=== PATIENT | female | born 1970 | race Caucasian/White ===

== ENCOUNTER 2024-03-22 10:05 | Emergency (ER) | payer OTHER, SELFPAY ==
[2024-03-22 10:52] LABS: #Basophils 0.07 10x3/uL (0.0-0.2); %Basophils 1.4 % (0.0-1.0); %Eosinophils 5.8 % (0.0-10.0); %Lymphocytes 47.7 % (21.0-51.0); %Monocytes 7.4 % (0.0-10.0); %Neutrophils 36.7 % (42.0-75.0); Hematocrit 30.1 % (36.0-47.0); Mean Corpuscular HGB CONC 33.2 g/dL (32.0-36.0); Mean Corpuscular Hemoglobin 36.5 pg (27.0-31.0); Mean Corpuscular Volume 109.9 fL (78.0-98.0); Mean Platelet Volume 8.7 fL (7.4-10.4); Platelet Count 343 10x3/uL (130-400); Red Blood Cell (RBC) Count 2.74 mill/uL (4.20-5.40)
[2024-03-22 11:05] LABS: INR-International Normal Ratio 1.1; PTT 27.2 sec (22.9-36.1); Prothrombin Time 13.8 sec (12.0-14.7)
[2024-03-22 11:09] LABS: ALT (SGPT) 26 U/L (8-55); AST (SGOT) 35 U/L (5-34); Albumin 3.3 g/dL (3.5-5.0); Alkaline Phosphatase 94 U/L (40-110); Anion Gap 13 mmol/L (10-20); BUN (Urea Nitrogen) 8 mg/dL (9.8-20.1); Bilirubin, Total 0.1 mg/dL (0.2-1.2); Calc. Creatinine Clearance 0 mL/min (70-130); Calcium 8.3 mg/dL (7.8-10.44); Carbon Dioxide 24 mmol/L (22-29); Chloride 112 mmol/L (98-107); Estimated GFR 108; Globulin 3.4 g/dL (2.4-3.5); Glucose 104 mg/dL (70-105); Potassium 3.9 mmol/L (3.5-5.1); Protein, Total 6.7 g/dL (6.0-8.3); Sodium 145 mmol/L (136-145)
== END 2024-03-22 12:15 | disposition home or self-care (01) ==
LOC: ERS 10:05
DX: K64.8 Other hemorrhoids (principal)
CPT/HCPCS: 36415; 80053; 85025; 85610; 85730; 99283